=== PATIENT | female | born 1975 | race Caucasian/White ===

== ENCOUNTER 2023-04-22 20:06 | Emergency (ER) | payer BC ==
[2023-04-22] MEDS: Ketorolac 30 MG/ML SDV IM ONE (20:26)
[2023-04-22] MEDS: Diazepam 5 MG Tab PO ONE (20:55)
== END 2023-04-22 21:34 | disposition home or self-care (01) ==
LOC: CC.ED 20:06
DX: M62.830 Muscle spasm of back (principal)
CPT/HCPCS: 72100; 96372; 99283; A9270-GY; J1885